=== PATIENT | female | born 1960 | race Caucasian/White ===

== ENCOUNTER 2018-02-08 06:15 | Day surgery (SDC) | payer BC ==
[~2018-02-08 06:15] MED LIST: Buffered Lidocaine 0.9% SYRIN* 5 ML/SYR SYRINGE INTRADERM ONE; Dexamethasone IV* 4 MG/ML 1 ML (4 MG) IV SLOW PU ONE; Famotidine IV* 10 MG/ML 2 ML (20 mg) IV ONE
[2018-02-08] MEDS ORDERED: Ondansetron INJ* 2 MG/ML VIAL ONE ×2 (06:55→07:27)
[2018-02-08] MEDS ORDERED: Heparin VIAL(*) 5000 UNITS/ML VIAL (FIVE THOUSAND) ONE (06:55)
[2018-02-08] MEDS ORDERED: ceFAZolin 2 GM PREMIX (*) 2 GM/50 ML BAG IVPB ONE (06:56)
[2018-02-08] MEDS ORDERED: Scopolamine 1.5 mg* PATCH ONE (06:56)
[2018-02-08] MEDS ORDERED: Dexamethasone IV* 4 MG/ML 1 ML (4 MG) ONE (06:56)
[2018-02-08] MEDS ORDERED: Bupivacaine 0.25% SDV* 30 ML ONE (07:11)
[2018-02-08] MEDS ORDERED: Famotidine TAB* 20 MG ONE (07:17)
[2018-02-08] MEDS ORDERED: Atracurium* 10 MG/ML 10 ML VIAL ONE (07:27)
[2018-02-08] MEDS ORDERED: fentaNYL* 50 MCG/ML 5 ML VIAL (250 MCG VIAL) ONE (07:27)
[2018-02-08] MEDS ORDERED: Lidocaine 2% PF * 5 ML VIAL ONE (07:27)
[2018-02-08] MEDS ORDERED: Midazolam* 1 MG/ML 5 ML VIAL (5 MG) ONE (07:27)
[2018-02-08] MEDS ORDERED: Propofol* 10 MG/ML 20 ML BTL IV PUSH ONE (07:27)
[2018-02-08] MEDS ORDERED: Lidocain 1% EPI 1:100,000 * 30 ML MDV ONE (07:33)
[2018-02-08] MEDS ORDERED: fentaNYL* 50 MCG/ML 2 ML VIAL (100 MCG VIAL) ONE ×3 (07:59→12:30)
[2018-02-08] MEDS ORDERED: fentaNYL* 50 MCG/ML 2 ML VIAL (100 MCG VIAL) IV PRN (08:15)
[2018-02-08] MEDS ORDERED: oxyCODONE/Acetamin 5/325 MG* TAB PO PRN (08:15)
[2018-02-08] MEDS ORDERED: DiMENhydriNATE IV* 50 MG/ML VIAL IV PUSH PRN (08:15)
[2018-02-08] MEDS ORDERED: Naloxone* 0.4 MG/ML 1 ML VIAL IV PRN (08:15)
[2018-02-08] MEDS ORDERED: oxyCODONE/Acetamin 5/325 MG* TAB ONE (12:12)
[2018-02-08 12:56] VITALS: BP 139/85
[2018-02-08] MEDS ORDERED: Metoprolol Tartrate IV* 1 MG/ML 5 ML VIAL ONE (13:37)
[2018-02-08] MEDS ORDERED: hydrALAZINE IV* 20 MG/ML VIAL ONE (13:37)
== END 2018-02-08 13:17 | disposition home or self-care (01) ==
LOC: OR 06:15
PROVIDERS: ATTEND Plastic Surgery
DX: N62 Hypertrophy of breast (principal); M54.2 Cervicalgia; M25.512 Pain in left shoulder; M25.511 Pain in right shoulder; L30.4 Erythema intertrigo; I10 Essential (primary) hypertension; E66.9 Obesity, unspecified
CPT/HCPCS: 88305; A9270-GY; J0360; J0690; J1100; J1644; J2250; J2405; J2704; J3010; J3490